=== PATIENT | male | born 1975 | race Caucasian/White ===

== ENCOUNTER → 2020-03-04 13:15 | Outpatient (BNVA) | payer BC, SELFPAY | PROVIDERS: Family Provider Family Medicine; PCP Family Medicine; Referring Provider Nurse Practitioner Family; Visit Provider Nurse Practitioner Family | DX: M25.561 Pain in right knee (principal) | CPT/HCPCS: 73562 ==

== ENCOUNTER 2020-11-15 09:13 | Emergency (ER) | payer SELFPAY ==
[2020-11-15 09:15] VITALS: BP 182/96; PULSE 61; RESP 18; TEMP 36.7; O2SAT 98; BMI 38.0
[2020-11-15 09:26] VITALS: BP 182/96; PULSE 57; RESP 16; O2SAT 98
--- NOTE | 2020-11-15 09:26 | W.ED.GENADLT ---
HPI - General Adult General: Chief complaint: General Medical Stated complaint: Rt arm/both legs Pain Time Seen by Provider: 11/15/20 09:26 Source: patient Mode of arrival: ambulatory Limitations: no limitations History of Present Illness: HPI narrative: Patient comes in today with exacerbation of his chronic gouty arthritis. Patient has a increased redness and tenderness to the right elbow. Patient has a olecranon bursitis. Patient does have troth I on bilateral elbows. 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 Patient reports severe gout. Review of Systems General: Reports: 10 or more systems reviewed and unremarkable except in HPI and below Musc: Reports: other (Joint pain.) PFS ED PFSH: Family History (Updated 11/06/19 @ 17:02 by Suzie Thomas LPN) Father Myocardial infarction Mother COPD (chronic obstructive pulmonary disease) Social History (Updated 11/06/19 @ 17:04 by Suzie Thomas LPN) Smoking and tobacco status: never smoked Alcohol intake: never Physical Exam Const: COMMON NORMALS: no acute distress and patient oriented x3 GENERAL APPEARANCE: cooperative HENMT: COMMON NORMALS: normocephalic and Normal external nose present HEAD & SCALP: normal to inspection and normocephalic NOSE: Normal external nose present MOUTH: Normal oral and palatal mucosa present THROAT: posterior oropharynx normal Eye: GENERAL EYE: appearance normal, both eyes and all related structures Neck/C-Spine: COMMON NORMALS: full ROM Lymph: LYMPHATIC: no lymphadenopathy noted Chest: COMMONS NORMALS: normal inspection of the chest Resp: COMMON NORMALS: normal respiratory effort EFFORT & INSPECTION: Yes able to speak in complete sentences Cardio: COMMON NORMALS: regular rate and regular rhythm RATE: regular rate RHYTHM: regular rhythm GI: COMMON NORMALS: non-tender : COMMON NORMALS: Yes no CVA tenderness BLADDER/KIDNEY EXAM: Yes no CVA tenderness Back/Pelvis: COMMON NORMALS: no CVA tenderness and thoracic and lumbar spine normal to inspection Extremity: COMMON NORMALS: normal to inspection NARRATIVE EXTREMITY EXAM: Redness and inflammation of the right olecranon bursa. Neuro: COMMON NORMALS: patient oriented x3 and moves all extremities Psych: COMMON NORMALS: mental status grossly normal and cooperative Skin: COMMON NORMALS: no rashes or lesions noted GENERAL SKIN EXAM: no rashes or lesions noted Course Vital Signs: Vital signs: Vital Signs Temperature 98.1 F 11/15/20 09:15 Pulse Rate 57 L 11/15/20 09:26 Respiratory Rate 16 11/15/20 09:26 Blood Pressure 182/96 11/15/20 09:26 Pulse Oximetry 98 11/15/20 09:26 MDM - General Adult MDM Narrative: Medical decision making narrative: Patient presents with redness and inflammation to the right elbow. On exam patient has tenderness to the olecranon bursa with redness noted. Distal pulses are intact. Differential diagnosis includes infectious bursitis, hemorrhagic bursitis, inflammation. 18-gauge needle was used to pull out some bloody tinged fluid from the olecranon bursa of the right elbow. Patient tolerated well. No sign of purulent drainage was noted. Patient be treated for inflammation and gouty flare. Patient be placed on NSAIDs, steroid, and medication for pain. Patient was recommended to follow-up with primary care. We will also cover patient with Bactrim for secondary infection. Case management will be consulted for referral to rheumatology. Discharge Plan Discharge Patient Disposition: Home Condition: Stable Prescriptions: New hydrocodone-acetaminophen 5-325 mg tablet 1 tab PO Q6H PRN (Reason: pain) Qty: 10 RF: 0 diclofenac sodium 75 mg tablet,delayed release (DR/EC) 75 mg PO BID Qty: 30 RF: 0 prednisone 20 mg tablet 20 mg PO BID Qty: 20 RF: 0 Bactrim DS 800-160 mg tablet 1 tab PO BID 7 Days Qty: 14 RF: 0 No Action sildenafil PO PRN (Reason: sexual activity) RF: 0 prednisone 10 mg tablet 5 mg PO QDAY PRNRF: 0 Bystolic 20 mg tablet 20 mg PO QDAY RF: 0 alprazolam 0.5 mg tablet 0.5 mg PO BID RF: 0 atorvastatin 80 mg tablet 80 mg PO QDAY RF: 0 aspirin [Adult Low Dose Aspirin] 81 mg tablet,delayed release (DR/EC) 81 mg PO QDAY RF: 0 Discharge Orders: Discharge ED (Routine); Ordered 11/15/20 Ordered By: Thony Plata Referrals: Santana Brown DO [Primary Care Provider] - Discharge Diet: Usual diet Discharge Activity: Increase activity as tolerated Patient Instructions: Elbow Bursitis (ED) Activity Restrictions/Additional Instructions: Take medications as directed. Drink plenty of fluids. Follow-up with primary care as needed for worsening or persistent symptoms. Return to the emergency department for high fever or new concerns. Coding Level of Care Code ED Cell Phone Repair Technician for Armando Fwd Exam Comprehensive
[2020-11-15] MEDS: dexamethasone 10 mg/mL INJ IM (10:05)
[2020-11-15] MEDS: ketorolac 30 mg/mL INJ IM (10:06)
[2020-11-15] MEDS: HYDROcodone-acetaminophen 7.5-325 mg Tablet 1 TAB PO (10:06)
[2020-11-15] MEDS: methylPREDNISolone (DEPO) 80 MG/ML INJ 1 mL IM (10:06)
[2020-11-15] MEDS: sulfamethoxazole-trimeth DS 160-800 mg Tablet 1 TAB PO (10:06)
--- NOTE | 2020-11-16 11:25 | DCPLANNER ---
Addendum entered by Lianne Helms 12/01/20 13:35: manager etl called the rheumatololgy clinic, was told that referral is still being worked on. Original Note: manager etl had message to schedule a follow up appointment for patient with rheumatology. manager etl called the rheumatology clinic, spoke with Radha, gave clinic patients information. manager etl was told that patients information will be printed and reviewed. Clinic will call patient with appointment information.
--- NOTE | 2020-12-24 08:38 | DCPLANNER ---
Patient has a follow up appointment scheduled for Monday, January 13, 2021 at 10:[address] Sheffield with rheumatology. Clinic will call patient with appointment information.
--- NOTE | 2021-01-19 15:23 | DCPLANNER ---
Patient had a follow up appointment scheduled for 01.13.[address] Mahan with Rheumatolg[facility] - patient did attend appointment.
== END 2020-11-15 10:35 | disposition home or self-care (01) ==
PROVIDERS: Emergency Provider Nurse Practitioner Family; PCP Family Medicine
DX: M25.521 Pain in right elbow (principal); Z79.82 Long term (current) use of aspirin
CPT/HCPCS: 10160; 12345; 96372; 99282; 99283; J1040; J1100; J1885

== ENCOUNTER → 2021-01-13 09:30 | Outpatient (BNVA) | payer MEDICAID, SELFPAY | PROVIDERS: PCP Nurse Practitioner Family; Visit Provider Internal Medicine Rheumatology | DX: M1A.9XX1 Chronic gout, unspecified, with tophus (tophi) (principal); Z79.899 Other long term (current) drug therapy; M19.90 Unspecified osteoarthritis, unspecified site; Z11.59 Encounter for screening for other viral diseases; Z11.1 Encounter for screening for respiratory tuberculosis; M70.21 Olecranon bursitis, right elbow; M70.22 Olecranon bursitis, left elbow; Y93.9 Activity, unspecified; L03.114 Cellulitis of left upper limb | CPT/HCPCS: 99204 ==

== ENCOUNTER 2021-01-13 11:15 | Outpatient (CLI) | payer MEDICAID, SELFPAY ==
--- NOTE | 2021-01-13 11:37 | XR_ITS ---
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 Findings: No fractures or dislocations are seen. The radial head is normal. The soft tissues are unremarkable. There is a large olecranon spur with a swollen olecranon bursa. Air is a spur of the medial humeral c ondyle which may be from an injury. XR/XR elbow RT 2V 55358 Impression: 1. Large olecranon spur with swollen olecranon bursa which can be seen with gou t. 2. Spur of the medial humeral condyle which may be from chronic injury.
--- NOTE | 2021-01-13 11:37 | XR_ITS ---
WS: [id number] Right foot, 3 views, 01/13/2021 Clinical Data: Z79.899 - Other correction (current) drug therapy Comparison: None. Findings: No fractures or dislocations are seen. There is a bunion of the head of the right first metatarsal wi th osteoarthritic narrowing of the right first MTP joint.There is a prominent Achilles spur. There is a bony prominence of the distal syndesmosis between the tibia and fibula. No periarticular demineral ization or calcifications are seen. XR/XR foot RT min 3V* 10591 Impression: 1. Osteoarthritis and bunion of the right first MP joint. 2. Large Achilles spur.
--- NOTE | 2021-01-13 11:37 | XR_ITS ---
WS: [id number] Right hand, 3 views, 01/13/2021 Clinical Data: Z79.899 - Other prison (current) drug therapy Comparison: None. Findings: There is osteoarthritic change with erosion, narrowing and cyst formation of the right seco nd PIP joint of the hand. There is soft tissue swelling over the middle phalanx of the right fifth fi nger.No periarticular demineralization or calcifications are seen. There are no new fractures or disl ocations. There is an old fracture of the distal right fifth metacarpal. XR/XR hand RT min 3V* 25560 Impression: 1. Severe osteoarthritis of the right second PIP joint of the hand. 2. Soft tissue swelling over the middle phalanx of the right fifth finger witho ut erosion or sclerosis.
--- NOTE | 2021-01-13 11:37 | XR_ITS ---
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 Findings: No new fractures or dislocations are seen. There is soft tissue swelling about the left fourth PIP nelli int of the hand. The joint spaces are normal. No periarticular demineralization or calcifications are seen There is an old fracture of the left fifth metacarpal. XR/XR hand LT min 3V* 05158 Impression: Soft tissue swelling about the left fourth PIP joint of the hand.
--- NOTE | 2021-01-13 11:37 | XR_ITS ---
WS: [id number] Left foot, 3 views, 01/13/2021 Clinical Data: Z79.899 - Other technician terminal and repeater (current) drug therapy Comparison: Left foot, 12/30/2014. Findings: There is osteoarthritic change of the left first MTP joint of the foot. This change has progressed si nce the last left foot x-ray. There is a large Achilles spur. No fractures or dislocations are seen. No soft tissue calcifications are noted. XR/XR foot LT min 3V* 25428 Impression: OsteoArthritic changes left first MP joint of the foot.
--- NOTE | 2021-01-13 11:37 | XR_ITS ---
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 Findings: No fractures or dislocations are seen. The radial head is normal. There is a large olecranon spur.. There is soft tissue swelling of the olecranon bursa. There are small spurs of the lateral and medial humeral condyles. XR/XR elbow LT 2V 31975 Impression: 1. Large left olecranon spur with olecranon bursa soft tissue swelling. 2. Small spurs of the left medial and lateral humeral condyles
[2021-01-13 12:51] LABS: Basophils # 0.1 10^3/uL (0.0-0.1); Basophils % 0.5 %; Eosinophils # 0.2 10^3/uL (0.0-0.8); Hematocrit 48.5 % (42.0-52.0); Hemoglobin 15.7 g/dL (11.7-16.6); Lymphocytes # 2.2 10^3/uL (0.8-4.8); Lymphocytes % 23.1 %; Mean Corpuscular HGB Conc 32.4 g/dL (30.0-36.0); Mean Corpuscular Hemoglobin 29.3 pg (28.0-34.0); Mean Corpuscular Volume 90.7 fL (80-94); Mean Platelet Volume 9.1 fL (7.4-10.4); Monocytes # 0.9 10^3/uL (0.2-0.9); Monocytes % 9.2 %; Neutrophils # 6.22 10^3/uL (1.8-7.7); Neutrophils % 64.3 %; Nucleated Red Blood Cells % 0 %; Platelet Count 319 10^3/cmm (130-400); Red Blood Count 5.35 10^6/uL (4.1-5.3); Red Cell Distribution Width 14.6 % (12.1-15.1); White Blood Count 9.7 10^3/uL (4.0-10.0)
[2021-01-13 13:30] LABS: 25 Hydroxy Vitamin D 20 ng/mL (30-100); Alanine Aminotransferase 18 U/L (0-41); Albumin Level 4.1 g/dL (3.5-5.2); Alkaline Phosphatase 84 IU/L (40-130); Aspartate Amino Transferase 19 U/L (0-40); C Reactive Protein 7.2 mg/L (0.0-4.9); Globulin 3.3 g/dL (1.3-4.6); Glomerular Filtration Rate 103.6 mL/min (90-130); Total Bilirubin 0.6 mg/dL (0.15-1.2); Total Protein 7.4 g/dL (6.6-8.7); Uric Acid 11.8 mg/dL (3.4-7.0)
[2021-01-13 13:51] LABS: Hepatitis B Core AB, Total Non-Reactive (Nonreactive); Hepatitis B Surface Antigen Non-Reactive (Nonreactive); Hepatitis C Virus Antibody Non-Reactive (Nonreactive)
[2021-01-13 13:59] LABS: Erythrocyte Sedimentation Rate 18 mm/hr (0-10)
[2021-01-14 13:37] LABS: Cyclic Citrullinated Peptide <16 UNITS
[2021-01-15 13:48] LABS: Quantiferon Mitogen 8.05 IU/mL; Quantiferon Nil 0.01 IU/mL; Quantiferon Plus TB1 0.01 IU/mL; Quantiferon TB Gold NEGATIVE (NEGATIVE)
== END 2021-01-13 11:16 | disposition home or self-care (01) ==
PROVIDERS: PCP Nurse Practitioner Family; Visit Provider Internal Medicine Rheumatology
DX: Z79.899 Other long term (current) drug therapy (principal); M10.9 Gout, unspecified; M19.90 Unspecified osteoarthritis, unspecified site; Z11.59 Encounter for screening for other viral diseases; M19.041 Primary osteoarthritis, right hand; M79.89 Other specified soft tissue disorders; M19.072 Primary osteoarthritis, left ankle and foot; M19.071 Primary osteoarthritis, right ankle and foot; M21.611 Bunion of right foot; M77.8 Other enthesopathies, not elsewhere classified
CPT/HCPCS: 36415; 73070; 73130; 73630; 80076; 82306; 82565; 84550; 85025; 85651; 86140; 86431; 86480; 86704; 86803; 87340

== ENCOUNTER → 2021-08-10 09:05 | Outpatient (BNVA) | payer MEDICAID, SELFPAY | PROVIDERS: PCP Nurse Practitioner Family; Referring Provider Nurse Practitioner Family; Visit Provider Nurse Practitioner Family | DX: R06.02 Shortness of breath (principal) | CPT/HCPCS: 71046 ==

== ENCOUNTER → 2021-08-30 11:14 | Outpatient (BNVA) | payer MEDICAID, SELFPAY | PROVIDERS: PCP Nurse Practitioner Family; Visit Provider Internal Medicine Rheumatology | DX: M1A.9XX1 Chronic gout, unspecified, with tophus (tophi) (principal); Z79.899 Other long term (current) drug therapy; M70.21 Olecranon bursitis, right elbow; M70.22 Olecranon bursitis, left elbow; Z91.19 Patient's noncompliance with other medical treatment and regimen | CPT/HCPCS: 99214 ==

== ENCOUNTER → 2021-10-04 00:01 | Outpatient (BNVA) | payer MEDICAID, SELFPAY | PROVIDERS: PCP Nurse Practitioner Family; Visit Provider Orthopaedic Surgery | DX: Z01.812 Encounter for preprocedural laboratory examination (principal) | CPT/HCPCS: 87635 ==

== ENCOUNTER 2021-10-07 06:31 | Day surgery (SDC) | payer MEDICAID, SELFPAY ==
[2021-10-06 12:48] VITALS: BMI 38.0
[2021-10-07] VITALS (15 sets, daily range): BP systolic 96–215; BP diastolic 54–108; PULSE 62–82; RESP 10–20; TEMP 36.2–36.4; O2SAT 92–98
--- NOTE | 2021-10-07 07:02 | ANES.PREANE2 ---
Pre-Anesthetic Assessment Pre-Anesthetic Assessment: Height/Weight: Height 1.83 m Weight 127.006 kg Preop Diagnosis: Right olecranon bursitis, olecranon osteophyte Proposed Procedure: Operation Date: 10/07/21 08:15 Proposed Procedures p Excision right olecranon bursa & olecranon osteophyte M70.21(Right) - Rohith Mcclendon MD Was Beta Abilio taken within 24 hours: Yes Was Clonidine taken within 24 hours: N/A Last intake: Intake Last Liquid Date 10/06/21 Last Liquid Time 22:00 Last Solid Date 10/06/21 Last Solid Time 19:00 Social: Social History: No alcohol and No tobacco Exam: Pre-Anes Outpt Exam: alert, oriented x 3, clear to auscultation bilaterally and regular rate & rhythm Airway: Submandibular: WNL Cervical ROM: WNL MP: 3 Dentition: Chipped CV/HEM: CV/HEM: HTN GI: GI: GERD Metabolic: Metabolic: Hyperlipidemia and Morbid obesity Musc/skel: Musc/skel: OA/DJD Comments: inflammatory arthritis--chronic steroid Neuropsych: Neuropsych: Anxiety Anesthetic Plan: ASA status: 3 Anesthesia: General Risk of > 500 ml blood loss (7ml/kg in children): No PFSH Anesthesia PFSH: Medical History Cellulitis of left elbow Chronic tophaceous gout of both hands Gout High risk medication use Hypercholesteremia Hypertension Inflammatory arthritis Joint pain Olecranon bursitis of both elbows Surgical History History of open heart surgery Total knee replacement status Family History Father Myocardial infarction Mother COPD (chronic obstructive pulmonary disease) Other CAD (coronary artery disease) Hyperlipidemia Hypertension Rheumatoid arthritis Denies family history of Diabetes Lupus Chronic kidney disease (CKD) Lung disease Cancer Stroke Social History Smoking and tobacco status: never smoked Alcohol intake: never Data Anesthesia Cardiac Studies: No Data to Display
[2021-10-07] MEDS: sodium chloride 0.9% 1,000 ML 30 ML IV (07:05)
--- NOTE | 2021-10-07 07:13 | W.PM.OPSUD ---
Surgery/Procedure H&P Update DATE OF PROCEDURE: October 07, 2021 DATE H&P PERFORMED: 09/29/21 H&P UPDATE INFORMATION: I have reviewed H&P completed within last 30 days PREOP DIAGNOSIS: Right olecranon bursitis, olecranon osteophyte PLANNED PROCEDURE: Operation Date: 10/07/21 08:15 Proposed Procedures p Excision right olecranon bursa & olecranon osteophyte M70.21(Right) - Rohith Mcclendon MD
--- NOTE | 2021-10-07 09:16 | PM.OP ---
Operative Report Date of procedure: October 07, 2021 Pre-op Diagnosis: Right olecranon bursitis, olecranon osteophyte Post-op diagnosis: same Post-op Findings: Same Procedure Done: Excision right olecranon bursa and removal of olecranon osteophyte Pathology: none sent Surgeon: Rohith Mcclendon Anesthesia: General Tourniquet time (min): 39 Findings: The patient had a enlarged right olecranon bursa full of chalky tophaceous material consistent with gout. No acute infection was identified. He had a prominent spur over the tip of his olecranon Condition: other Disposition: PACU Procedure: The patient was taken the operating room. He was given 2 g of Ancef and a general anesthesia. He is positioned in the supine position with his right arm flexed over his body. A longitudinal 5 cm long incision was made over the overlying bursa. Dissection was carried down through the skin or tophaceous line bursal sac was identified. Utilizing scissors dissection was accomplished medially and laterally circumferentially exposing the bursa. It was then elevated off the periosteum of the dorsal ulnar. A longitudinal split was made in the triceps insertion bring this down to prominent olecranon spur. Utilizing a rongeur this was debrided back flush with the olecranon. The wound was irrigated with saline. Deep tissues were closed with 2-0 Vicryl. The skin was closed with interrupted 3-0 Prolene. Xeroflo gauze 4 x 4's Kerlix web roll and a compressive Dayo were applied. The patient was placed in a sling extubated and taken to recovery room in stable condition.
[2021-10-07] MEDS: fentaNYL 50 mcg/mL INJ 2mL IVP ×2 (09:35→09:42)
--- NOTE | 2021-10-07 09:54 | ANE.PACU2 ---
Inpatient post-anesthesia follow up: Airway intact: Yes Vital signs: Temperature 97.5 F Pulse Rate 70 Respiratory Rate 17 Blood Pressure 215/99 Pulse Oximetry 93 Oxygen Delivery Me thod Room Air Oxygen Flow Rate 10 Fraction of Inspir ed Oxygen Hydration adequate: Yes Nausea and vomiting: No Pain level: 4 Mental status: Baseline Additional Comments: uncontrolled HTN
[2021-10-07] MEDS: hyDRALAzine 20 mg/mL INJ 1 mL (09:56)
[2021-10-07] MEDS: HYDROmorphone 1 mg/mL INJ 1 mL 0.5 MG IVP (09:57)
[2021-10-07] MEDS: hyDRALAzine 20 mg/mL INJ 1 mL 5 MG IVP (10:00)
[2021-10-07] MEDS: hyDRALAzine 20 mg/mL INJ 1 mL 10 MG IVP (10:05)
[2021-10-07] MEDS: HYDROcodone-acetaminophen 5-325 mg Tablet 1 TAB PO (10:43)
--- NOTE | 2021-10-07 16:20 | ANE.PACU2 ---
Inpatient post-anesthesia follow up: Airway intact: Yes Vital signs: Temperature 97.2 F Pulse Rate 79 Respiratory Rate 16 Blood Pressure 191/87 Pulse Oximetry 95 Oxygen Delivery Me thod Room Air Oxygen Flow Rate 10 Fraction of Inspir ed Oxygen Hydration adequate: Yes Nausea and vomiting: No Pain level: 2 Mental status: Baseline
== END 2021-10-07 10:50 | disposition home or self-care (01) ==
PROVIDERS: PCP Nurse Practitioner Family; Visit Provider Orthopaedic Surgery
PROC: (CPT 24120; principal; 2021-10-07 08:05)
DX: M70.21 Olecranon bursitis, right elbow (principal); M25.721 Osteophyte, right elbow; I10 Essential (primary) hypertension; K21.9 Gastro-esophageal reflux disease without esophagitis; E78.5 Hyperlipidemia, unspecified; E66.01 Morbid (severe) obesity due to excess calories; Z68.38 Body mass index [BMI] 38.0-38.9, adult; M19.90 Unspecified osteoarthritis, unspecified site; Z79.52 Long term (current) use of systemic steroids; F41.9 Anxiety disorder, unspecified; E78.00 Pure hypercholesterolemia, unspecified; Z82.49 Family history of ischemic heart disease and other diseases of the circulatory system
CPT/HCPCS: 24120; 96372; J0360; J0690; J1100; J1170; J1580; J1885; J2370; J2405; J2704; J3010; J7030

== ENCOUNTER 2023-02-16 11:33 | Emergency (ER) | payer MEDICAID, SELFPAY ==
[2023-02-16 11:57] VITALS: BP 159/92; PULSE 112; RESP 18; O2SAT 99
--- NOTE | 2023-02-16 12:33 | XR_ITS ---
WS: [id number] Left hand, 3 views, 02/16/2023 Clinical Data: 4th finger swelling and pain Comparison: Left hand, 01/13/2021 Findings: There is partial destruction of the distal portion of the left fourth finger proximal phalanx and bas e of the middle phalanx. There are periarticular calcifications with massive soft tissue swelling. Th ere is soft tissue swelling about the left second finger PIP joint with small cysts of the adjoining proximal and middle phalanges. There is also erosion of the ulnar styloid.There is an old fracture of the left fifth metacarpal. XR/XR hand LT min 3V* 21530 Impression: 1. Soft tissue swelling with partial destruction of the adjacent proximal and m iddle phalanx of left fourth finger. 2. Soft tissue swelling and demineralization of the PIP joint of the left secon d finger. 3. Erosion of the ulnar styloid.
--- NOTE | 2023-02-16 12:36 | ED_ITS ---
HPI - Extremity Problem General: Chief complaint: Extremity Problem,Nontraumatic Stated complaint: swollen fingers left hand, pt says gout Time Seen by Provider: 02/16/23 12:09 History of Present Illness: Patient is a 47-year-old male who comes to the ED with pain and swelling to [facility] finger on left hand. Patient says he has a history of rheumatoid arthritis and sees a specialist for it. The pain and swelling in his fourth digit of left hand started approximately 5 weeks ago and has continued to progress. Denies any acute change in finger and says it has just been slowly progressing. His mattress stuffer told patient to come here to the ED to get finger drained. Patient reports 10 out of 10 pain in finger. Denies any injury or trauma to cause symptoms. Denies any other symptoms. Associated symptoms: Deny chest pain, fever(s) or rash Review of Systems Const: Denies: fever(s), chills or fatigue Eyes: Denies: change in vision or eye discomfort ENMT: Denies: throat pain, odynophagia, nasal discharge or nasal congestion Card: Denies: chest pain, palpitations, edema, swelling of feet/ankles, dyspnea on exertion or orthopnea Resp: Denies: dyspnea, productive cough or non-productive cough GI: Denies: abdominal pain, nausea, vomiting, diarrhea, constipation or hematochezia : Denies: flank pain, difficulty urinating, dysuria or hematuria Musc: Reports: extremity pain (Fourth digit left hand) and extremity swelling (Fourth digit left hand); Denies: neck pain or back pain Skin/Breast: Denies: rash or new lesions Neuro: Denies: headache(s), numbness in extremities or weakness in extremities PFSH ED PFSH: Medical History Cellulitis of left elbow Chronic tophaceous gout of both hands Gout High risk medication use Hypercholesteremia Hypertension Inflammatory arthritis Joint pain Olecranon bursitis of both elbows Surgical History History of open heart surgery Total knee replacement status Family History Father Myocardial infarction Mother COPD (chronic obstructive pulmonary disease) Other CAD (coronary artery disease) Hyperlipidemia Hypertension Rheumatoid arthritis Denies family history of Diabetes Lupus Chronic kidney disease (CKD) Lung disease Cancer Stroke Social History Smoking and tobacco status: never smoked Alcohol intake: never Substance/Drug Use: never Physical Exam Const: COMMON NORMALS: no acute distress, patient oriented x3 and alert HENMT: COMMON NORMALS: normocephalic HEAD & SCALP: normocephalic MOUTH: Normal oral and palatal mucosa present THROAT: posterior oropharynx normal and uvula midline Neck/C-Spine: COMMON NORMALS: supple GENERAL: Yes normal visual inspection Resp: COMMON NORMALS: normal respiratory effort, No retractions, No use of accessory muscles and clear to auscultation bilaterally AUSCULTATION: clear to auscultation bilaterally Cardio: COMMON NORMALS: regular rate, regular rhythm, S1 normal heart sound present, S2 normal heart sound present, No gallops present (Cardio), No clicks present (Cardio), No murmurs present (Cardio) and Peripheral pulses 2+ throughout RATE: regular rate RHYTHM: regular rhythm HEART SOUNDS: S1 normal heart sound present and S2 normal heart sound present PERIPHERAL PULSES: Peripheral pulses 2+ throughout GI: COMMON NORMALS: Normal to inspection, nondistended, normoactive bowel sounds present, Soft to palpation, non-tender and no masses PALPATION: Yes Soft to palpation : COMMON NORMALS: Yes no CVA tenderness BLADDER/KIDNEY EXAM: Yes no CVA tenderness Back/Pelvis: COMMON NORMALS: no CVA tenderness Extremity: NARRATIVE EXTREMITY EXAM: Left hand?third digit significant swelling around PIP joint. No erythema or warmth noted. Finger is tender to palpation. Limited range of motion due to pain. Neurovascular intact. Neuro: COMMON NORMALS: patient oriented x3 SENSORIUM/ORIENTATION: Yes alert GAIT: Yes Normal gait present Skin: GENERAL SKIN EXAM: dry skin Course Vital Signs: Vital signs: Vital Signs Pulse Rate 112 H 02/16/23 11:57 Respiratory Rate 18 02/16/23 11:57 Blood Pressure 159/92 02/16/23 11:57 Pulse Oximetry 99 02/16/23 11:57 Oxygen Delivery Me thod Room Air 02/16/23 11:57 MDM - Extremity (Nontraumatic) Medical Decision Making Patient is a 47-year-old male who comes to the ED with pain and swelling to f ourth finger on left hand. Patient says he has a history of rheumatoid arthritis and sees a specialist for it. The pain and swelling in his fourth digit of left hand started approximately 5 weeks ago and has continued to progress. Denies any acute change in finger and says it has just been slowly progressing. Vitals are stable. Left hand third digit has significant swelling but no erythema or warmth noted. Tenderness over PIP joint. Neurovascular intact distally. This is chronic developing issue and he has no systemic symptoms no other symptoms suggesting an acute issue. White blood cell count normal and his ESR is 65 and CRP 184. I talked with Dr. Ivy first about patient case and she did not feel comfortable working on this case and referred me to her partner Dr. Fish. I contacted Dr. Fish and told about patient case and he saw clinical pictures of patient's hand and x-rays. He stated that he is going to be out of town for the next 2 days and would be able to see patient on MondayFebruary 20. He recommended if patient wants to try to get into another orthopedic hand specialist in [place] sooner he can try that option. Told patient about my conversation with Dr. Fish and he would rather see Dr. Fish here on Monday, rather than trying to get in with [place]. He was given strict return to ED precautions. I sent him home with follow-up informat ion with the orthopedic clinic and told him to contact them first thing on MondayFebruary 20. He was sent home with a prescription for an antibiotic and pain med. Patient understood and agreed with plan. Lab Data I reviewed the patient's lab results. 02/16/23 13:17 Radiology Impressions Hand X-Ray 02/16/23 12:33 Impression: 1. Soft tissue swelling with partial destruction of the adjacent proximal and middle phalanx of left fourth finger. 2. Soft tissue swelling and demineralization of the PIP joint of the left second finger. 3. Erosion of the ulnar styloid. Laboratory Results WBC 9.1 10^3/uL (4.0-10.0) 02/16/23 13:17 RBC 4.45 10^6/uL (4.1-5.3) 02/16/23 13:17 Hgb 12.8 g/dL (11.7-16.6) 02/16/23 13:17 Hct 40.1 % (42.0-52.0) L 02/16/23 13:17 MCV 90.1 fl (80-94) 02/16/23 13:17 MCH 28.8 pg (28.0-34.0) 02/16/23 13:17 MCHC 31.9 g/dL (30.0-36.0) 02/16/23 13:17 RDW 14.1 % (12.1-15.1) 02/16/23 13:17 Plt Count 252 10^3/cmm (130-400) 02/16/23 13:17 MPV 8.8 fL (7.4-10.4) 02/16/23 13:17 Neut % (Auto) 76.6 % 02/16/23 13:17 Lymph % (Auto) 12.3 % 02/16/23 13:17 Dent % (Auto) 8.6 % 02/16/23 13:17 Eos % (Auto) 1.9 % 02/16/23 13:17 Baso % (Auto) 0.2 % 02/16/23 13:17 Neut # (Auto) 6.98 10^3/uL (1.8-7.7) 02/16/23 13:17 Lymph # (Auto) 1.1 10^3/uL (0.8-4.8) 02/16/23 13:17 Dent # (Auto) 0.8 10^3/uL (0.2-0.9) 02/16/23 13:17 Eos # (Auto) 0.2 10^3/uL (0.0-0.8) 02/16/23 13:17 Baso # (Auto) 0.0 10^3/uL (0.0-0.1) 02/16/23 13:17 Nucleated RBC % (auto) 0 % 02/16/23 13:17 Nucleated RBCs # 0.0 /100WBC 02/16/23 13:17 ESR 65 mm/hr (0-10) H 02/16/23 13:17 C-Reactive Protein 184.6 mg/L (0.0-4.9) H 02/16/23 13:17 Discharge Plan Discharge Patient Disposition: Home Clinical Impression: Swelling of finger, left, Pain involving joint of finger of left hand Condition: Stable Prescriptions: New cephalexin 500 mg capsule 500 mg PO Q6H 7 Days Qty: 28 0RF No Action alprazolam 0.5 mg tablet 0.5 mg PO BID atorvastatin 80 mg tablet 80 mg PO QDAY aspirin [Adult Low Dose Aspirin] 81 mg tablet,delayed release (DR/EC) 81 mg PO QDAY Entresto 49-51 mg tablet 1 tab PO BID allopurinol 200 mg tablet 400 mg PO DAILY prednisone 20 mg tablet 20 mg PO BID 5 Days Qty: 10 0RF Rx Instructions: Take for 5 days followed by 5 days of the lower dose 10mg twice a day (separate rx) prednisone 10 mg tablet 10 mg PO BID 5 Days Qty: 10 0RF Rx Instructions: Take for 5 days after completing higher dose (separate prescription) prednisone 10 mg tablet See Rx Instructions PO DAILY Qty: 17 0RF Rx Instructions: day 1-5 20mg; day 6-10 10mg; day 11-14 5mg orally daily; Discharge Orders: Discharge ED (Routine); Ordered 02/16/23 Ordered By: Donal Fish Referrals: Mike Urias MD [Primary Care Provider] - Discharge Diet: Regular Discharge Activity: Increase activity as tolerated Patient Instructions: Opioid Safety Activity Restrictions/Additional Instructions: Follow-up with [facility] orthopedic and spine clinic on MondayFebruary 20. Phone number is [phone]. Take medications as prescribed. Return to the ER or your medical provider if condition worsens. Please read and understand discharge instructions. Thank you for choosing [facility] for your healthcare needs today. Please realize this is an emergency room and that we are providing you with a medical screening exam and this may not be complete and all inclusive of all the testing and or work up that you may need to determine your ailment or severity of your illness. It is very important that you follow up as instructed or that you return to the Emergency Department should you have concerns or if your condition changes or worsens in any way. Coding Level of Care Code ED Chiller Operator for Armando Levine
[2023-02-16] MEDS: oxyCODONE-APAP 5-325 mg Tablet 1 TAB PO (12:39)
[2023-02-16 13:28] LABS: Basophils % 0.2 %; Eosinophils # 0.2 10^3/uL (0.0-0.8); Eosinophils % 1.9 %; Hematocrit 40.1 % (42.0-52.0); Hemoglobin 12.8 g/dL (11.7-16.6); Lymphocytes # 1.1 10^3/uL (0.8-4.8); Lymphocytes % 12.3 %; Mean Corpuscular HGB Conc 31.9 g/dL (30.0-36.0); Mean Corpuscular Hemoglobin 28.8 pg (28.0-34.0); Mean Corpuscular Volume 90.1 fl (80-94); Mean Platelet Volume 8.8 fL (7.4-10.4); Monocytes # 0.8 10^3/uL (0.2-0.9); Monocytes % 8.6 %; Neutrophils # 6.98 10^3/uL (1.8-7.7); Neutrophils % 76.6 %; Nucleated Red Blood Cells % 0 %; Platelet Count 252 10^3/cmm (130-400); Red Blood Count 4.45 10^6/uL (4.1-5.3); Red Cell Distribution Width 14.1 % (12.1-15.1); White Blood Count 9.1 10^3/uL (4.0-10.0)
[2023-02-16 13:34] LABS: Erythrocyte Sedimentation Rate 65 mm/hr (0-10)
[2023-02-16 13:47] LABS: C Reactive Protein 184.6 mg/L (0.0-4.9)
--- NOTE | 2023-02-17 07:59 | PC.NURSE ---
Addendum entered by Lianne Helms 02/21/23 13:15: Patient had a follow up appointment scheduled with ortho - patient did attend appointment. Original Note: Patient seen in the ED on 02/16/23. Referral to Dr Fish for monday02/20/23. Message sent to Ortho to contact patient for an appt.
== END 2023-02-16 15:12 | disposition home or self-care (01) ==
PROVIDERS: Emergency Provider Physician Assistant; PCP Family Medicine
DX: M79.89 Other specified soft tissue disorders (principal); M25.542 Pain in joints of left hand; Z79.82 Long term (current) use of aspirin; I10 Essential (primary) hypertension
CPT/HCPCS: 36415; 73130; 85025; 85651; 86140; 99284

== ENCOUNTER 2023-02-21 13:10 | Day surgery (SDC) | payer MEDICAID, SELFPAY ==
[2023-02-21 13:28] VITALS: BMI 38.1
--- NOTE | 2023-02-21 14:22 | ANES.PREANE2 ---
Pre-Anesthetic Assessment Height/Weight: Height 1.83 m Weight 127.459 kg O2 Del Method Room Air 02/21/23 13:35 Operation Date: 02/21/23 15:10 Proposed Procedures p Right hand ring finger ray resection:50995,M25.542(Right) - Arul Polina, Familial anesthetic complications: None Was Beta Abilio taken within 24 hours: N/A Was Clonidine taken within 24 hours: N/A Last intake: Intake Last Liquid Date 02/20/23 Last Liquid Time 21:00 Last Solid Date 02/20/23 Last Solid Time 21:00 Social No alcohol and No tobacco Exam alert, oriented x 3, clear to auscultation bilaterally and regular rate & rhythm Airway Mallampati: Class III Dentition: chipped and full CV/HEM Hypertension Metabolic Hyperlipidemia and Morbid Obesity Anesthetic Plan ASA status: 3 Anesthesia: MAC and Regional (specify below) Risk of > 500 ml blood loss (7ml/kg in children): No Medications/Allergies Home Medications Medication Instructions Recorded Confirmed Last Taken Type sacubitril 49 mg-valsartan 51 mg 1 tab PO BID 01/13/21 02/21/23 02/21/23 05:30 History tablet (Entresto) allopurinol 200 mg tablet 400 mg PO DAILY 01/26/23 02/21/23 02/21/23 05:30 History hydrocodone 5 mg-acetaminophen 325 1 tab PO Q6H PRN Pain 02/21/23 02/21/23 02/21/23 05:30 History mg tablet Allergies Allergy/AdvReac Type Severity Reaction Status Date / Time No Known Allergies Allergy Verified 02/21/23 13:25 PFS Anesthesia Medical History Cellulitis of left elbow Chronic tophaceous gout of both hands Gout High risk medication use Hypercholesteremia Hypertension Inflammatory arthritis Joint pain Olecranon bursitis of both elbows Surgical History History of open heart surgery Total knee replacement status Family History Father Myocardial infarction Mother COPD (chronic obstructive pulmonary disease) Other CAD (coronary artery disease) Hyperlipidemia Hypertension Rheumatoid arthritis Denies family history of Diabetes Lupus Chronic kidney disease (CKD) Lung disease Cancer Stroke Social History Smoking and tobacco status: never smoked Alcohol intake: never Substance/Drug Use: never Data Anesthesia Cardiac Studies: No Data to Display
--- NOTE | 2023-02-21 14:24 | ANES.PROC ---
Anesthesia Procedures Procedure/Date: 02/21/23 Nerve Block ^: Nerve Block 1: Main Anesthesia: general anesthesia Time Out Performed: Yes Consent: requested by attending/covering physician, from patient, from other, risks and benefits reviewed and patient agrees to proceed Nerve block location: axillary (L) Anesthesia monitors applied: pulse oximetry, EKG and BP cuff Nerve block position: supine Anesthetic Used: ropivicaine 0.5% (30 ml) and with decadron (4 mg) Ultrasound used to: recognize landmarks and visualize and ID brachial plexus Nerve Stimulator Used?: No Interscalene/Femoral BLK: 2 stimuplex 22 g needle used for position and inplane approach, visualize local anesthetic spread and no vascular puncture identified Injection: neg aspiration of heme Patient Tolerated Procedure: well Complications: none
--- NOTE | 2023-02-21 14:27 | W.PM.OPSUD ---
Surgery/Procedure H&P Update DATE OF PROCEDURE: February 21, 2023 DATE H&P PERFORMED: 02/21/23 CHANGES TO PREVIOUS DOCUMENTATION: None PREOP DIAGNOSIS: Left ring finger gout with destructive lytic PIP joint PRIMARY INDICATION FOR PROCEDURE: Left ring finger gout with obstructive PIP joint and lytic lesions noted throughout the middle and proximal phalanx PLANNED PROCEDURE: Operation Date: 02/21/23 15:10 Proposed Procedures p Right hand ring finger ray resection:79089,M25.542(Right) - Raul Fish DO
[2023-02-21] MEDS: acetaminophen 1,000 MG/100 ML PIGGYBACK 400 MG IV (14:36)
[2023-02-21] MEDS: sodium chloride 0.9% 1,000 ML 30 ML IV (14:47)
[2023-02-21] MEDS: ketorolac 30 mg/mL INJ IVP (14:49)
[2023-02-21] MEDS: ceFAZolin 1,000 mg SDV 1000 MG IVP (17:25)
[2023-02-21] MEDS: ceFAZolin 2,000 MG in sodium chloride 0.9% (plus) 50 ML 100 MG IV (17:25)
[2023-02-21] MEDS: ceFAZolin 1,000 mg SDV 1000 MG IRRIGATION (17:34)
--- NOTE | 2023-02-21 17:35 | SUR.OPER ---
1725 Pre-op antibiotics started after cultures were obtained. HD
[2023-02-21 18:28] VITALS: BP 116/77; PULSE 114; RESP 12; TEMP 36.4; O2SAT 98
--- NOTE | 2023-02-21 18:29 | PM.OP2 ---
Brief Operative Note Date of procedure: 02/21/23 Pre-op diagnosis: Left ring finger gout flare with possible infection and destructive bone ch Post-op diagnosis: same (Left ring finger gout flare with complete PIP joint destruction) Procedure Done: Left fourth finger ray resection Surgeon: Raul Fish Estimated blood loss (mL): 5 Complications: None Post-op Plan: Patient taken to PACU in stable condition recovering well. Patient placed into a volar splint. Will receive appropriate discharge instructions as well as pain medication postoperatively. Patient will be placed on empiric antibiotics until cultures are confirmed. Did appear to be more in the lines of gout given the crystalline deposits and tophi noted at the PIP joints however would continue to monitor cultures in case superinfection noted on gout flare. Patient follow-up in the orthopedic office in 2 weeks. Plan for suture removal at that time. Condition: stable Disposition: same day Coding Level of Care Code Acute Code for Arling Julianna
--- NOTE | 2023-02-21 18:30 | P.OP_ITS ---
Operative Report Date of procedure: February 21, 2023 Pre-op diagnosis: Preop Diagnosis Left ring finger gout obstructive PIP joint Post-op diagnosis: Left ring finger gout flare with destructive PIP joint Post-op findings: Gout crystalline deposits and tophi noted over the PIP joint with complete destruction of the PIP joint and significant lytic and bony changes of the proximal phalanx and middle phalanx Procedure done: Left fourth finger ray resection Specimens removed/disposition: Cultures aerobic and anaerobic as well as specimen taken for crystals as well Surgeon: Ralu Fish DO Estimated blood loss: 5 ML 22 minutes IV fluids: See anesthesia record Complications: None Findings: See operative report narrative Condition: stable Disposition: same day Brief History: Jed peña is a 47-year-old gentleman with extensive history of gout and being managed by rheumatology. He has had 5 weeks of significant swelling of his PIP joint of the left ring finger has had steady pain and this is now become completely dysfunctional he has no mobility of this digit and ultimately has nonfunctional and limits the functionality of his other fingers. Patient's x- rays show complete destruction of PIP joint with dorsal dislocation of the middle phalanx and lytic changes noted throughout the middle and proximal phalanx we talked about his treatment options as far as I&D versus leaving this alone versus amputation at the proximal phalanx versus a ray resection at this point time through shared decision making he would like a more definitive treatment as well as better functionality and less surgery and I think his next best step given the significant erosive changes and destructive changes of PIP joint would be a fourth ray resection. Through shared decision-making he agrees to proceed with this. Was concern for possible infection source as he did have elevated inflammatory markers but this could be associated with gout but in order to prevent any worsening infection recommend surgical intervention all questions answered he is agreeable to proceed he understands the risk benefits complications alternatives of surgery and elects proceed with surgical intervention all questions answered consent obtained. Procedure: Patient seen evaluate in the preoperative holding area. Consent was reviewed and signed with patient. Correct extremity was then marked. Patient was seen eval by anesthesia once cleared for surgery patient was taken back to the operative suite. Patient was then transported on the OR table placed in supine position all bony prominences well-padded patient appropriate secured to bed. Armboard spine left upper arm. Nonsterile tourniquet applied to left upper arm. Patient then underwent anesthesia per the anesthesia department at [facility]. Once properly anesthetized left upper extremity is then prepped and draped in standard orthopedic fashion. Final timeout performed. Held on antibiotics until cultures were taken. Esmarch was used exsanguinate the left upper extremity tourniquet was insufflated 250 mmHg. I initially made a longitudinal incision over the PIP joint to culture this area just for confirmation of possible diagnosis as well as to evaluate for any crystalline arthropathy. On my incision no significant murky fluid was noted patient's synovial fluid was cultured however patient had extensive white gouty tophi noted throughout the entire PIP joint as well as middle and proximal phalanx. This point in time it was fairly convinced this was complete destruction of gouty arthropathy. I then subsequently proceeded with fourth finger ray resection. Longitudinal incision was made centering over the fourth ray with a V shaped incision into the creases and this was mirrored on the palmar side as well just with a simple V incision to help reapproximate the webspace. I then sharp scalpel excision was made through subcutaneous tissue switched to Littler dissection scissors identified the extensor tendon. I then released the juncture return today off of the fourth finger extensor tendon I confirmed the middle finger extensor tendon as well as a small finger and confirmed this was not the tendon to be resecting and I subsequently resected the appropriate ring finger extensor tendon. This was taken proximally at the base of the metacarpal I then subsequently performed periosteal d issection around the metacarpals taken this all the way back to roughly a fingerbreadth the past the CMC joint I placed baby Homans around the metacarpal and then performed transection of the metacarpal with an oscillating saw. Towel clip was then taken and I dissected out the metacarpal with sharp scalpel excision. Next I then identified the intermetacarpal ligaments these were then transected and preserved on both sides for later closure. Next I carried my dissection palmarly. Created a small V incision of the skin connecting it in the webspaces sharp scalpel incision was made through skin and subcutaneous tissue I then switched to Littler dissection scissors dissected out the digital neurovascular bundles identified the digital nerve and these were both placed under traction and performed traction neurectomies next I then subsequently utilized bipolar electrocautery and coagulated the digital artery. Next I then completed the transection of the fourth finger and this was then removed. At this point in time it was noted that even within patient's interosseous muscle there was white gouty tophi deposits noted throughout I did my best to try and utilize dissection scissors as well as scalpel excision of any apparent crystalline deposits. I then thoroughly irrigated the wound bed tourniquet was deflated. Hemostasis was satisfactory with bipolar electrocautery. I then rivas bsequently closed the incision in layered fashion I utilized PDS suture to reapproximate the intermetacarpal ligaments to close down the webspace and then subsequently closed the subcutaneous tissue with 2-0 PDS and then interrupted nylon suture approximated the skin. Patient had appropriate closure of the fourth webspace. I then placed Xeroform over the incision 4 x 4's ABD Curlex and a volar splint with soft roll was applied as well as an Dayo wrap. Patient was then awakened from anesthesia and taken to PACU in stable condition. Disposition: Patient taken to PACU in stable condition we will place on empiric antibiotics. We will see appropriate discharge structure as well as pain medication postoperatively. Placed in a volar splint. We will see him back in 2 weeks for incision check and plan for suture removal at that time he may benefit from potential hand therapy depending on how well he is functioning and moving his fingers. Patient understands and agrees with current plan. All questions answered.
--- NOTE | 2023-02-21 18:30 | P.PCN_ITS ---
PACU note Narrative: Patient taken to PACU in stable condition recovering well. Patient received regional anesthesia. Unable to assess motor or sensory. Fingertips warm well- perfused brisk capillary refill less than 2 seconds. Splint on in place clean dry and intact limits examination Exam: awake Disposition: discharged
[2023-02-21 18:33] VITALS: BP 125/95; PULSE 89; RESP 16; O2SAT 98
[2023-02-21 18:38] VITALS: BP 127/92; PULSE 89; RESP 15; O2SAT 96
--- NOTE | 2023-02-21 18:40 | ANE.PACU2 ---
Inpatient post-anesthesia follow up: Airway intact: Yes Vital signs: Temperature 97.4 F Pulse Rate 95 Respiratory Rate 18 Blood Pressure 132/87 Pulse Oximetry 99 Oxygen Delivery Me thod Room Air Oxygen Flow Rate Fraction of Inspir ed Oxygen Hydration adequate: Yes Nausea and vomiting: Yes Pain level: 1 Mental status: Baseline
[2023-02-21 18:43] VITALS: BP 125/91; PULSE 92; RESP 16; TEMP 36.2; O2SAT 98
[2023-02-21 18:45] VITALS: BP 124/94; PULSE 96; RESP 18; TEMP 36.3; O2SAT 97
[2023-02-21] MEDS: HYDROcodone-acetaminophen 5-325 mg Tablet 1 TAB PO (19:00)
[2023-02-21 19:18] VITALS: BP 132/87; PULSE 95; RESP 18; O2SAT 99
== END 2023-02-21 19:28 | disposition home or self-care (01) ==
PROVIDERS: PCP Family Medicine; Visit Provider Student in an Organized Health Care Education/Training Program
PROC: (CPT 26910; principal; 2023-02-21 14:50)
DX: M1A.9XX1 Chronic gout, unspecified, with tophus (tophi) (principal); I10 Essential (primary) hypertension; E78.5 Hyperlipidemia, unspecified; E66.01 Morbid (severe) obesity due to excess calories; Z79.891 Long term (current) use of opiate analgesic
CPT/HCPCS: 26951; 87070; 87075; 87205; 88305; 88311; J0131; J0690; J1100; J1885; J2370; J2704; J2795; J3010; J7030

== ENCOUNTER → 2023-03-17 08:31 | Outpatient (BNVA) | payer MEDICAID, SELFPAY | PROVIDERS: PCP Family Medicine; Visit Provider Nurse Practitioner Family | DX: M10.9 Gout, unspecified (principal); Z98.890 Other specified postprocedural states | CPT/HCPCS: 73130 ==

== ENCOUNTER → 2023-04-05 09:25 | Outpatient (BNVA) | payer MEDICAID, SELFPAY | PROVIDERS: PCP Family Medicine; Visit Provider Nurse Practitioner Family | DX: M1A.9XX1 Chronic gout, unspecified, with tophus (tophi) (principal) | CPT/HCPCS: 73130 ==

== ENCOUNTER 2023-05-03 10:28 | Day surgery (SDC) | payer MEDICAID, SELFPAY ==
[2023-05-02 10:21] VITALS: BMI 38.6
[2023-05-03] VITALS (7 sets, daily range): BP systolic 153–179; BP diastolic 71–93; PULSE 58–78; RESP 16–18; TEMP 36.1–36.7; O2SAT 92–98
--- NOTE | 2023-05-03 10:46 | ECG_ITS ---
[facility] Test Date: 2023-05-03 Pat Name: Jed Blackburn Department: Room: Gender: Male Hydraulic Press In Operator: : 1975 Requested By: Roxana Brownlee Order Number: [id number] Rashaun MD: Francia Hewitt M.D. Measurements Intervals [place] Rate: 60 P: 44 MI: 200 QRS: 11 QRSD: 116 T: 108 QT: 522 QTc: 523 Interpretive Statements SINUS RHYTHM POSSIBLE ANTERIOR MYOCARDIAL INFARCTION , OF INDETERMINATE AGE [30 ms Q WAVE IN V3/V4, OR R < 0.2 mV IN V4] MODERATE T-WAVE ABNORMALITY, CONSIDER LATERAL ISCHEMIA [-0.1+ mV T-WAVE IN I/aVL/V5/V6] No previous ECG available for comparison Electronically Signed On 05-03-2023 20:27:28 CDT by Francia Hewitt M.D. [email or web address]
[2023-05-03] MEDS: acetaminophen 1,000 MG/100 ML PIGGYBACK 400 MG IV (11:15)
[2023-05-03] MEDS: ketorolac 30 mg/mL INJ IVP (11:15)
[2023-05-03] MEDS: lactated ringers 500 ML IV (11:17)
[2023-05-03] MEDS: sodium chloride 0.9% 1,000 ML 30 ML IV (11:18)
--- NOTE | 2023-05-03 11:18 | P.ANESASSM_ITS ---
Pre-Anesthetic Assessment Height/Weight: Height 1.83 m Weight 129.274 kg Temp Pulse Resp BP Pulse Ox O2 Del Method 98.0 F 78 18 163/91 98 Room Air 05/03/23 10:53 05/03/23 10:53 05/03/23 10:53 05/03/23 10:53 05/03/23 10:53 05/03/23 10:53 Preop Diagnosis: right index, middle and small finger gout Operation Date: 05/03/23 12:45 Proposed Procedures p RIGHT INDEX FINGER, MIDDLE RIGHT FINGER, SMALL RIGHT FINGER INCISION AND DRAINAGE 77292 x3 M10.9(Right) - Raul Reno, DO Familial anesthetic complications: none Was Beta Abilio taken within 24 hours: N/A Was Clonidine taken within 24 hours: N/A Last intake: Intake Last Liquid Date 05/02/23 Last Liquid Time 22:00 Last Solid Date 05/02/23 Last Solid Time 20:00 Social No alcohol and No tobacco Exam alert, oriented x 3, clear to auscultation bilaterally and regular rate & rhythm Airway Mallampati: Class III Dentition: chipped CV/HEM Hypertension Metabolic Hyperlipidemia and Morbid Obesity Anesthetic Plan ASA status: 3 Anesthesia: General Risk of > 500 ml blood loss (7ml/kg in children): No Medications/Allergies Home Medications Medication Instructions Recorded Confirmed Last Taken Type sacubitril 49 mg-valsartan 51 mg 1 tab PO BID 01/13/21 05/03/23 05/03/23 History tablet (Entresto) allopurinol 200 mg tablet 400 mg PO DAILY 01/26/23 05/03/23 05/03/23 History cardirone 1 tab PO DAILY 04/24/23 05/03/23 05/03/23 History apixaban 5 mg tablet (Eliquis) 5 mg PO BID 05/02/23 05/03/23 04/30/23 History atorvastatin 80 mg tablet 80 mg PO DAILY 05/02/23 05/03/23 05/03/23 History furosemide 20 mg tablet 20 mg PO DAILY 05/02/23 05/03/23 05/03/23 History hydralazine 25 mg tablet 25 mg PO DAILY 05/02/23 05/03/23 05/03/23 History metoprolol tartrate 50 mg tablet 150 mg PO BID 05/02/23 05/03/23 05/03/23 H istory Allergies Allergy/AdvReac Type Severity Reaction Status Date / Time No Known Allergies Allergy Verified 05/03/23 10:48 [facility] Anesthesia Medical History Cellulitis of left elbow Chronic tophaceous gout of both hands Gout High risk medication use Hypercholesteremia Hypertension Inflammatory arthritis Joint pain Olecranon bursitis of both elbows Surgical History History of open heart surgery Total knee replacement status Family History Father Myocardial infarction Mother COPD (chronic obstructive pulmonary disease) Other CAD (coronary artery disease) Hyperlipidemia Hypertension Rheumatoid arthritis Denies family history of Diabetes Lupus Chronic kidney disease (CKD) Lung disease Cancer Stroke Social History Smoking and tobacco status: never smoked Alcohol intake: never Substance/Drug Use: never Data Anesthesia 05/03/23 11:07 Cardiac Studies: No Data to Display
[2023-05-03 11:27] LABS: Basophils % 0.2 %; Eosinophils # 0.1 10^3/uL (0.0-0.8); Eosinophils % 0.6 %; Hematocrit 37.5 % (42.0-52.0); Hemoglobin 12.2 g/dL (11.7-16.6); Lymphocytes # 0.8 10^3/uL (0.8-4.8); Lymphocytes % 7.1 %; Mean Corpuscular HGB Conc 32.5 g/dL (30.0-36.0); Mean Corpuscular Hemoglobin 28.6 pg (28.0-34.0); Mean Platelet Volume 9.4 fL (7.4-10.4); Monocytes # 1.3 10^3/uL (0.2-0.9); Neutrophils # 9.16 10^3/uL (1.8-7.7); Neutrophils % 80.7 %; Nucleated Red Blood Cells % 0 %; Platelet Count 311 10^3/cmm (130-400); Red Blood Count 4.26 10^6/uL (4.1-5.3); Red Cell Distribution Width 17.9 % (12.1-15.1); White Blood Count 11.4 10^3/uL (4.0-10.0)
--- NOTE | 2023-05-03 12:45 | W.PM.OPSUD ---
Surgery/Procedure H&P Update DATE OF PROCEDURE: May 03, 2023 DATE H&P PERFORMED: 04/24/23 CHANGES TO PREVIOUS DOCUMENTATION: None. No change in HPI from initial office visit on 04/24/2023. Patient elects to proceed with surgical intervention of right index middle and small finger irrigation debridement secondary to patient's gout. Patient understands agrees with current plan. All questions answered. PREOP DIAGNOSIS: right index, middle and small finger gout PRIMARY INDICATION FOR PROCEDURE: Right index, middle and small finger gout PLANNED PROCEDURE: Operation Date: 05/03/23 12:45 Proposed Procedures p RIGHT INDEX FINGER, MIDDLE RIGHT FINGER, SMALL RIGHT FINGER INCISION AND DRAINAGE 05800 x3 M10.9(Right) - Raul Fish DO
[2023-05-03] MEDS: ceFAZolin 2,000 MG in sodium chloride 0.9% (plus) 50 ML 100 MG IV (12:52)
--- NOTE | 2023-05-03 13:18 | SUR.OPER ---
called Denise in path, she stated that gout crystals go to lab and then they will make a slide for path.
--- NOTE | 2023-05-03 14:37 | ANE.PACU2 ---
Inpatient post-anesthesia follow up: Airway intact: Yes Vital signs: Temperature 97 F Pulse Rate 58 Respiratory Rate 16 Blood Pressure 158/93 Pulse Oximetry 96 Oxygen Delivery Me thod Room Air Oxygen Flow Rate Fraction of Inspir ed Oxygen Hydration adequate: Yes Nausea and vomiting: Yes Pain level: 1 Mental status: Baseline
[2023-05-03] MEDS: morphine 4 mg/mL SDV 1 mL IVP (14:57)
--- NOTE | 2023-05-03 14:59 | P.OP_ITS ---
Operative Report Date of procedure: May 03, 2023 Pre-op diagnosis: Preop Diagnosis right index, middle and small finger gout Post-op diagnosis: Right index, middle, small finger gallop Procedure done: Right index finger irrigation and debridement (4 cm x 2 cm x 1 cm) Right middle finger irrigation and debridement (2 cm x 2 cm x 1 cm) Right small finger irrigation and debridement (3 cm x 2 cm x 1 cm) Specimens removed/disposition: Synovial fluid/gout fluid was subsequently sent for crystals and pathology as well as cultures with aerobic and anaerobic Surgeon: Raul Fish DO Estimated blood loss: 20mL 43min IV fluids: See anesthesia record Complications: None Findings: See operative report narrative Condition: stable Disposition: same day Brief History: Patient is known to my service pleasant 47-year-old gentleman with with a severe case of gout throughout his body. Most pronounced within his hands. He is already had significant erosive changes with his left ring finger and subsequently given its lack of function and limitation to his left hand functi onality we subsequently underwent a left ray resection he is done very well with this and has had improvement in function with his hand. He is concerned about all of his other gout in his right digits particularly the index middle and small finger these have currently have significant gout presentation clinically the artery does have some erosive changes considerably noted on x-ray he like to prevent any further damage at this point in time would recommend an irrigation debridement of the right middle index and small finger we talked about this in detail as far as risk benefits complication alternatives with surgery understands risk of surgery elects proceed with surgical intervention all questions answered. Procedure: Patient seen and evaluated in the preoperative holding area. Consent was reviewed and signed with patient. Correct digits of the right hand were then subsequently marked. Patient then was seen eval by anesthesia once cleared for surgery was taken back to the operative suite he was kept on a gurney and placed with an armboard to the right upper extremity a nonsterile tourniquet was applied to the right upper arm. Patient then underwent anesthesia per the anesthesia department once properly anesthetized the right upper extremity was then prepped and draped in standard orthopedic fashion. Final timeout performed . Patient received appropriate preoperative antibiotics. Patient under sterile aseptic technique prior to incision underwent local anesthesia digital block to the right index middle and small fingers. Once appropriately anesthetized Esmarch tourniquet was used exsanguinate the right upper extremity and tourniquet was insufflated to 250 mmHg. I started with the small finger irrigation debridement. Small fluid collection over the PIP joint was noted I made a curvilinear incision 3 cm in length around the small finger PIP joint. 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 This was then subsequently sent for culture with aerobic and anaerobic cultures as well as crystals and pathology were then taken. This did have severe disruption of the extensor mechanism with no normal-appearing tissue. I tried to mobilize full-thickness flaps as possible of the extensor mechanism I then came down to the PIP joint and then a simple irrigation and debridement was then subsequently performed with a total of 3 cm x 2 cm x 1 cm. Thorough irrigation with cystoscopy tubing was then performed with 1 L. Care was made to not debrided excessive amount of tissue but to just excise all gouty crystals to prevent further erosive changes. The bone to the middle finger patient's DIP had most pronounced middle finger gout. I made a 2 cm incision curvilinear over the DIP joint. I came down directly over the DIP joint which was significantly eroded and a extensor lag was appreciated. Gouty crystals were noted and deposited throughout the terminal extensor mechanism as well as the entire DIP joint. I then subsequently tried to preserve as much of the extensor mechanism as possible and debrided just the crystals without an excessive debridement of all patients tissue in the area. Debridement total was performed of 2 cm x 2 cm x 1 cm. I then subsequently irrigated the DIP joint of the right middle finger with 1 L normal saline with cystoscopy tubing. This completed debridement of the middle finger Lastly attention was turned towards the right index finger at the PIP joint. This radiographically did have the most significant amount of gout. Curvilinear incision was made 4 cm in length. Patient's entire extensor mechanism was significantly eroded with no normal-appearing tissue. Crystalline deposits had significantly calcified and become very firm and hard but came down directly over the PIP joint and excise as much of the gouty crystals as possible and then patient had significant erosive changes of the bone with significant bony prominences these were smoothed with a rongeur as well. I then finalize my debridement with care to not excessively debride the healthy tissue. Total of debridement 4 cm x 2 cm x 1 cm. Once this was then completed I then thoroughly irrigated with cystoscopy tubing on 1 L. This completed debridement of all 3 digits the tourniquet was deflated hemostasis satisfactory bipolar electrocautery and then subsequently closed the incisions in standard fashion with simple interrupted nylon stitches. Fingers were then dressed with Xeroform 4 x 4's Curlex Joana wrap as well as Dayo wrap on the volar splint. Patient was then awakened from anesthesia and taken to PACU in stable condition. Disposition: Patient was taken to PACU in stable condition recovering well. We will see appropriate discharge directions as well as pain medication postoperatively. We will place him on an empiric antibiotic just in case of possible infection on top of a gout flare. Patient will follow-up in orthopedic office in 2 weeks. He understands appropriate discharge instructions. All questions answered.
--- NOTE | 2023-05-03 14:59 | PM.OP2 ---
Brief Operative Note Date of procedure: 05/03/23 Pre-op diagnosis: Gout flare right index finger, right middle finger right small finger Post-op diagnosis: same Procedure Done: Right index finger irrigation and debridement (4 cm x 2 cm x 1 cm) Right middle finger irrigation and debridement (2 cm x 2 cm x 1 cm) Right small finger irrigation and debridement (3 cm x 2 cm x 1 cm) Surgeon: Raul Fish Estimated blood loss (mL): 20 Complications: none Post-op Plan: Patient taken to PACU in stable condition recovering well. Pain controlled. Patient will receive appropriate discharge instructions as well as pain medication postoperatively. Given setting of gout flare we will empirically just place him on p.o. antibiotics empirically just in case of infection on top of gout flare. Will receive appropriate pain medication and dressing discharge instructions. Patient will follow-up in the orthopedic office in 2 weeks. All questions answered. We will follow his pathology results. Condition: stable Disposition: same day Coding Level of Care Code Acute Code for Armando Levine
--- NOTE | 2023-05-03 14:59 | PM.PACU ---
PACU note Narrative: Patient taken to PACU in stable condition recovering well. Fingertips warm well-perfused brisk cap refill less than 2 seconds dressings on in place. Able to wiggle fingers decreased sensation secondary to local anesthesia to the digits. Exam: awake Disposition: discharged
[2023-05-03] MEDS: HYDROcodone-acetaminophen 5-325 mg Tablet 1 TAB PO (15:12)
== END 2023-05-03 15:30 | disposition home or self-care (01) ==
PROVIDERS: Anesthesiology; PCP Family Medicine; Visit Provider Student in an Organized Health Care Education/Training Program
PROC: (CPT 26080; principal; 2023-05-03 12:45)
DX: M10.041 Idiopathic gout, right hand (principal); I10 Essential (primary) hypertension; E78.5 Hyperlipidemia, unspecified; E66.01 Morbid (severe) obesity due to excess calories; Z68.38 Body mass index [BMI] 38.0-38.9, adult; Z79.01 Long term (current) use of anticoagulants
CPT/HCPCS: 26080 ×3; 36415; 80503; 85025; 87070; 87075; 87205; 93005; J0131; J0690; J1100; J1885; J2250; J2270; J2704; J2795; J3490; J7030; J7120

== ENCOUNTER 2023-05-11 10:23 | Emergency (ER) | payer MEDICAID, SELFPAY ==
--- NOTE | 2023-05-11 10:33 | XR_ITS ---
WS: [id number] Left knee, 3 views, 05/11/2023 Clinical Data: pain Comparison: None. Findings: No fractures or dislocations are seen. There is minimal soft tissue swelling in the supra patellar bu rsa. The patella is intact. The soft tissues are unremarkable. There are subcutaneous clips in the left proximal leg. Minimal vascular calcifications are seen. XR/XR knee LT 3V* [id number] Impression: 1. Negative for fracture or dislocation. 2. Minimal soft tissue swelling of suprapatellar bursa. Kellgren-Rene Classification: grade 0 (none): definite absence of x-ray thelma nges of osteoarthritis
[2023-05-11 10:55] VITALS: BP 192/91; PULSE 72; TEMP 37.3; O2SAT 97; BMI 38.6
--- NOTE | 2023-05-11 11:11 | ED_ITS ---
HPI - Extremity Problem General: Chief complaint: Extremity Injury, Lower Stated complaint: LT Knee pain Time Seen by Provider: 05/11/23 10:31 Source: patient Mode of arrival: wheelchair Limitations: no limitations History of Present Illness: Patient is a nice 47-year-old male presents to ED today with a complaint of significant left knee pain. Patient states he has a chronic history of pain to the left knee but over the past week or so as significantly worsened to the point where he is not able to bear weight. He has a longstanding history of gout infections sometimes affecting the knee however states his pain feels different. He has not noticed any redness to the joint. Patient has underwent recent surgery to the right hand for gout infections by Dr. Fish. He states symptoms are present prior to the surgery. He is not overly complaining of calf pain. Patient has not been running fevers. He denies any recent injury or trauma to the joint. MD Complaint: joint pain Onset (ago): week(s) Pain Consistency: constant Location: left and knee Severity scale (1-10): 10 Radiation: none Relieving factors: nothing Exacerbating factors: range of motion, weight bearing, walking and palpation Associated symptoms: Reports no associated symptoms; Deny chest pain, fever(s) or rash Review of Systems Const: Denies: fever(s), chills, body aches, fatigue or malaise Card: Denies: chest pain Resp: Denies: dyspnea Musc: Reports: joint pain (L knee) and joint swelling (L knee); Denies: neck pain, back pain, extremity pain, extremity swelling, joint redness or limited range of motion Skin/Breast: Denies: rash Neuro: Reports: difficulty walking (secondary to L knee pain); Denies: numbness in extremities, weakness in extremities or sensory changes PFS ED PFSH: Medical History Cellulitis of left elbow Chronic tophaceous gout of both hands Gout High risk medication use Hypercholesteremia Hypertension Inflammatory arthritis Joint pain Olecranon bursitis of both elbows Surgical History History of open heart surgery Total knee replacement status Family History Father Myocardial infarction Mother COPD (chronic obstructive pulmonary disease) Other CAD (coronary artery disease) Hyperlipidemia Hypertension Rheumatoid arthritis Denies family history of Diabetes Lupus Chronic kidney disease (CKD) Lung disease Cancer Stroke Social History Smoking and tobacco status: never smoked Alcohol intake: never Substance/Drug Use: never Physical Exam Const: COMMON NORMALS: no acute distress, patient oriented x3, no limitations, alert and well nourished GENERAL APPEARANCE: cooperative NUTRITIONAL APPEARANCE: overweight ORIENTATION/CONSCIOUSNESS: Yes awake, Yes oriented to person, Yes oriented to place and Yes oriented to time Resp: COMMON NORMALS: normal respiratory effort and clear to auscultation bilaterally AUSCULTATION: clear to auscultation bilaterally Cardio: COMMON NORMALS: regular rate and regular rhythm RATE: regular rate RHYTHM: regular rhythm Extremity: COMMON NORMALS: capillary refill normal, no clubbing, cyanosis or edema and no pedal edema GENERAL: Yes normal exam except as noted LEFT LOWER EXTREMITY: Yes knee joint (significant swelling to L knee joint/calf when compared to R) Left knee: Yes inspection (swelling obvious; warmth noted; no erythema; normal micromovements), Yes palpation (TTP medial L knee), Yes ROM (limited secondary to pain) and Yes neurovascular exam (normal) Neuro: COMMON NORMALS: patient oriented x3, moves all extremities, no focal motor deficits and no sensory deficits noted SENSORIUM/ORIENTATION: Yes alert, Yes oriented to person, Yes oriented to place and Yes oriented to time Skin: COMMON NORMALS: no rashes or lesions noted GENERAL SKIN EXAM: no rashes or lesions noted Course Vital Signs: Vital signs: Vital Signs Temperature 99.1 F 05/11/23 10:55 Pulse Rate 72 05/11/23 10:55 Blood Pressure 192/91 05/11/23 10:55 Pulse Oximetry 97 05/11/23 10:55 Oxygen Delivery Me thod Room Air 05/11/23 10:55 MDM - Extremity (Nontraumatic) Medical Decision Making XR negative for acute bony injury. He does have soft tissue swelling of the suprapatellar bursa. Ultrasound of the leg shows no DVT or Marie's cyst. I have no suspicion for a septic arthritis at this time. Certainly symptoms could be secondary to a gouty flare as he has had gout to the knees before. Other etiologies could include bursitis, meniscal tear/injury, inflammatory effusion. Patient states he is almost out of his hydrocodone for his recent hand surgery but states he is needing something for pain for the knee so I will refill this. I will also place him on prednisone and diclofenac. He states he has follow-up with Dr. Fish next week for re-evaluation of the hand. Recommend he speak to Dr. Fish in regards to the knee if it does not seem to be improving. Lab Data Radiology Impressions Knee X-Ray 05/11/23 10:33 Impression: 1. Negative for fracture or dislocation. 2. Minimal soft tissue swelling of suprapatellar bursa. Kellgren-Rene Classification: grade 0 (none): definite absence of x-ray changes of osteoarthritis Discharge Plan Discharge Patient Disposition: Home Clinical Impression: Effusion of left knee Condition: Stable Prescriptions: New hydrocodone-acetaminophen 5-325 mg tablet 1 tab PO Q6H PRN (Reason: pain) Qty: 14 0RF diclofenac sodium 75 mg tablet,delayed release (DR/EC) 75 mg PO BID PRN (Reason: pain) Qty: 20 0RF prednisone 10 mg tablet 60 mg PO DAILY 5 Days Qty: 30 0RF No Action Entresto 49-51 mg tablet 1 tab PO BID allopurinol 200 mg tablet 400 mg PO DAILY cardirone 1 tab PO DAILY Patient Comments: patient was not sure if this is the name of the medication atorvastatin 80 mg tablet 80 mg PO DAILY hydralazine 25 mg tablet 25 mg PO DAILY metoprolol tartrate 50 mg tablet 150 mg PO BID furosemide 20 mg tablet 20 mg PO DAILY Eliquis 5 mg tablet 5 mg PO BID Discharge Orders: Discharge ED (Routine); Ordered 05/11/23 Ordered By: Eliza Tilley Referrals: Mike Urias MD [Primary Care Provider] - Activity Restrictions/Additional Instructions: As we discussed you may take the prescribed medications to help with discomfort in your knee. Please speak with Dr. Fish next week at your currently scheduled appointment if knee pain does not seem to be improving. Coding Level of Care Code ED Civil Preparedness Officer for Armando Levine
--- NOTE | 2023-05-11 11:33 | USCV_ITS ---
Jed Blackburn Age: 47 Gender: M : 1975 Exam Date: 05/11/2023 11:44 Ordering Phys: Eliza Tilley Technologist: ANDREA Exam Location: [facility] [place] Indication: Leg Pain HISTORY: Lower extremity pain. PROCEDURES: Venous duplex imaging was performed in only the left lower extremity. The following venous structures were evaluated: common femoral vein, profunda vein, proximal portion of the greater saphenous vein, superficial femoral vein, and the popliteal vein. In addition, the posterior tibial and peroneal trunk were evaluated. Serial compression, augmentation maneuvers, and spectral Doppler flow evaluation were performed. FINDINGS: Normal 2-D Doppler and augmentation and compressibility throughout the lower extremity venous structures. Additional imaging through the proximal calf veins also reveals no thrombus. Limited evaluation of the greater saphenous vein is patent with no thrombus. CONCLUSIONS No DVT left lower extremity. Dr. Amy Ortega DO (Electronically Signed) Final Date: 12 May 2023 08:30 S
[2023-05-11] MEDS: ketorolac 60 mg/2 mL INJ IM (11:38)
[2023-05-11] MEDS: morphine 4 mg/mL SDV 1 mL IM (11:38)
== END 2023-05-11 12:35 | disposition home or self-care (01) ==
PROVIDERS: Emergency Provider Physician Assistant; PCP Family Medicine
DX: M25.462 Effusion, left knee (principal); Z79.01 Long term (current) use of anticoagulants; I10 Essential (primary) hypertension; Z96.659 Presence of unspecified artificial knee joint
CPT/HCPCS: 73562; 93971; 96372; 99284; J1885; J2270

== ENCOUNTER → 2023-05-15 09:46 | Outpatient (BNVA) | payer MEDICAID, SELFPAY | PROVIDERS: PCP Family Medicine; Referring Provider Physician Assistant; Visit Provider Nurse Practitioner Family | DX: M25.462 Effusion, left knee (principal); M10.9 Gout, unspecified; Z98.890 Other specified postprocedural states | CPT/HCPCS: 80503; 89050 ==